=== PATIENT | male | born 1930 | race Caucasian/White ===

== ENCOUNTER → 2016-09-02 | Outpatient (CLI) | payer OTHER ==
[~2016-09-02] MED LIST: ACETAMINOPHEN650 M1 PO; AL-MAG HYDROX-S30 M1 PO; BACTRIM DS TABL1 TA1 PO; CARAFATE1 GM PO; CIPRO PO; CLOPIDOGREL75 MG PO; EYE VITAMIN-MI1 EACH; FLOMAX0.4 M1 PO; HYTRIN PO; HYTRIN10 M1 PO; HYTRIN10 MG PO; IMDUR PO; INVANZ1 G/VIA1 IV; ISORDIL10 MG PO; KEFLEX500 M1 PO; LIPITOR PO; LORTAB 5-325 M1 EACH PO; MULTI-VITAMIN1 TAB PO; PERCOCET 5-3251 TAB PO; PHENERGAN25 M1 PO; PLAVIX PO; PRAVASTATIN SOD40 MG PO; PRESERVISION/LUTEIN PO; PRESERVISION1 EA PO; PRILOSEC PO; RANITIDINE HCL150 M1 PO; RISA-BID CAPLE1 EAC1 PO; ZANTAC150 MG PO
--- NOTE | ~2016-09-02 | US5 ---
[facility] A Service of [facility] RADIOLOGY TEXT RESULTS PATIENT: ANGEL LUIS CURRY LOCATION: [facility] : 31 UNIT #: [id number] AGE: [address]: Angel Luis Banda MD SEX: M ORDER DR: [id number] [facility] [address] [place], [place] [address] [id number] O MR#: [id number] Acc #: [id number] NAME: ANGEL LUIS CURRY : 1930 SEX: M STUDY DATE/TIME: 09/02/2016 10:17 UNIT: US ROOM: STUDY DESCRIPTION: US Abdominal Complete Attending Physician: Angel Luis Banda Jr., M.D. Referring Physician: Angel Luis Banda Jr., M.D. Ordering Physician: Angel Luis Banda Jr., M.D. Primary Care Physician: Angel Luis Banda Jr., M.D. MEDICAL IMAGING REPORT This report is preliminary unless electronic signature is present EXAM Abdominal ultrasound INDICATION Elevated liver enzyme levels. PROCEDURE Huff-scale and Doppler imaging of the abdomen. COMPARISON None. FINDINGS Submitted images abdominal aorta and inferior vena cava unremarkable. Liver measures 14.8 cm. No liver mass on submitted images. Common duct measures 5 mm. Right kidney measures 11.3 cm. Mild prominence of the right renal pelvis. Left kidney measures 9.4 cm. There is mild left hydronephrosis. Spleen measures 8.6 cm. IMPRESSION 1. Mild left hydronephrosis with mild prominence of the right renal pelvis. No definite obstructing process seen on this study. That would be better evaluated with CT. 2. Gallbladder not seen, presumed surgically absent. 3. No acute finding seen elsewhere in the abdomen. Dictated by... Chester Oseguera M.D. THIS IS AN ELECTRONICALLY VERIFIED REPORT Chester Oseguera M.D. at 09/02/2016 10:23 PM [facility] A Service of [facility] RADIOLOGY TEXT RESULTS PATIENT: ANGEL LUIS CURRY LOCATION: [facility] : 31 UNIT #: [id number] AGE: [address]: Angel Luis Banda MD SEX: M ORDER DR: MODE/aniket TD: 09/02/2016 21:16 JOB #: [id number] MEDICAL IMAGING REPORT Page 1 of 1 COPY
== END | disposition home or self-care (01) ==
LOC: CGUS 09:51
DX: R74.8 Abnormal levels of other serum enzymes (principal); N13.30 Unspecified hydronephrosis
CPT/HCPCS: 76700

== ENCOUNTER → 2016-11-15 | Outpatient (CLI) | payer OTHER ==
--- NOTE | ~2016-11-15 | CT4 ---
[facility] A Service of [facility] RADIOLOGY TEXT RESULTS PATIENT: ANGEL LUIS CURRY LOCATION: [facility] : 31 UNIT #: [id number] AGE: [address]: Angel Luis Banda MD SEX: M ORDER DR: [id number] [facility] [address] [place], [place] [address] [id number] O MR#: [id number] Acc #: [id number] NAME: ANGEL LUIS CURRY : 1930 SEX: M STUDY DATE/TIME: 11/15/2016 8:20 UNIT: [facility] ROOM: STUDY DESCRIPTION: CT Abd and Pelv Wo Cont Attending Physician: Angel Luis Banda Jr., M.D. Referring Physician: Angel Luis Banda Jr., M.D. Ordering Physician: Angel Luis Banda Jr., M.D. Primary Care Physician: Angel Luis Banda Jr., M.D. MEDICAL IMAGING REPORT This report is preliminary unless electronic signature is present EXAM CT abdomen and pelvis without contrast 11/15/2016 HISTORY Physician's order states hydronephrosis. 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 History of kidney stones. History of prostate cancer, 11/27/[address] abdomen and pelvis without contrast 08/15/2015. Complete abdominal ultrasound 09/02/2016. TECHNIQUE 3 mm noncontrast axial images through the abdomen. Sagittal and coronal reformatted images were obtained. Enteric contrast was not administered. This CT exam was performed with one or more of the following radiation dose reduction techniques: automatic exposure control, adjustment of mA and/or kV according to patient size, and iterative reconstruction. FINDINGS The liver has a normal noncontrast appearance. Spleen, pancreas, adrenals are normal. There is moderately advanced calcific atherosclerosis within the abdominal aorta, with mild infrarenal abdominal aortic ectasia up to 2.8 cm, but without yoni aneurysm. There is moderate left hydronephrosis and hydroureter to the level of the urinary bladder without obstructing etiology identified. There is mild right pelviectasis without yoni hydronephrosis and no right hydroureter is seen. No urinary tract stone is evident. [facility] A Service of [facility] RADIOLOGY TEXT RESULTS PATIENT: ANGEL LUIS CURRY LOCATION: [facility] : 31 UNIT #: [id number] AGE: [address]: Angel Luis Banda MD SEX: M ORDER DR: There is mild urinary bladder wall thickening, similar to the 08/15/2015 exam. Trace pericardial fluid is present. Mild coronary artery calcifications are noted. Surgical clips at the esophagogastric junction. Lung bases are free of acute airspace disease. Gallbladder is presumably surgically absent. Diverticular changes are present within the colon, greatest in the sigmoid segment, without evidence of acute diverticulitis. PELVIS: There are small bilateral inguinal hernias, the left containing only fat, the right containing fat and fluid. Prostate gland is presumably surgically absent. Rectum is within normal limits. No pelvic adenopathy is identified. Facet arthropathy is present in the lower lumbar spine. No acute osseous abnormalities are identified. IMPRESSION 1. Moderate left hydronephrosis and hydroureter is similar in appearance to the 08/15/2015 examination. No obstructing ureteral stone is seen. 2. Mild right renal pelviectasis, with findings in the right kidney significantly improved compared to 08/15/2015 CT. No right hydroureter. No ureteral stone. 3. Mild urinary bladder wall thickening, similar to the 2016 examination. Findings could represent sequelae of chronic outlet obstruction. 4. Query prostatectomy. 5. Small bilateral inguinal hernias. 6. Surgical changes of the esophagogastric junction. 7. Presumed cholecystectomy. 8. Uncomplicated colonic diverticulosis. 9. Normal appendix. 10. Trace pericardial fluid. Coronary artery calcifications. 11. Not mentioned above, lobulated cortex of each kidney with areas of multifocal scarring. Dictated by... Valerie Alves M.D. THIS IS AN ELECTRONICALLY VERIFIED REPORT Valerie Alves M.D. at 11/18/2016 8:52 AM ELIS/louis TD: 11/15/2016 18:19 JOB #: [id number] [facility] A Service of [facility] RADIOLOGY TEXT RESULTS PATIENT: ANGEL LUIS CURRY [id number] [birth year] UNIT #: [id number] AGE: [address]: Angel Luis Banda MD SEX: M ORDER DR: MEDICAL IMAGING REPORT Page 1 of 1 COPY
== END | disposition home or self-care (01) ==
LOC: CCAT 07:49
DX: N13.30 Unspecified hydronephrosis (principal); N13.4 Hydroureter; K40.90 Unilateral inguinal hernia, without obstruction or gangrene, not specified as recurrent; K57.30 Diverticulosis of large intestine without perforation or abscess without bleeding; I25.10 Atherosclerotic heart disease of native coronary artery without angina pectoris; N32.89 Other specified disorders of bladder; Z98.890 Other specified postprocedural states
CPT/HCPCS: 74176

== ENCOUNTER → 2016-11-23 | Outpatient (CLI) | payer OTHER ==
--- NOTE | ~2016-11-23 | NM8 ---
[facility] A Service of [facility] RADIOLOGY TEXT RESULTS PATIENT: ANGEL LUIS CURRY LOCATION: [facility] : 32 UNIT #: [id number] AGE: [address]: Anderson Tipton MD SEX: M ORDER DR: [id number] [facility] [address] [place], [place] [address] [id number] O MR#: [id number] Acc #: [id number] NAME: ANGEL LUIS CURRY : 1930 SEX: M STUDY DATE/TIME: 11/23/2016 11:35 UNIT: [facility] ROOM: STUDY DESCRIPTION: FL Bone or Joint Whole Body Attending Physician: Anderson Tipton M.D. Referring Physician: Anderson Tipton M.D. Ordering Physician: Anderson Tipton M.D. Primary Care Physician: Angel Luis Banda Jr., M.D. MEDICAL IMAGING REPORT This report is preliminary unless electronic signature is present EXAM Whole body bone scan, 11/23/16 HISTORY Order states prostate cancer. Plain films with hot spots. History sheet states kidney problems. ?PSA. Past history of prostate cancer diagnosed in 1994. 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 COMPARISON - CT abdomen and pelvis 11/15/16 FINDINGS The patient received 28.8 mCi Tc99m MDP intravenous and anterior and posterior whole body scans are supplemented by spot images of the thorax and calvaria. There is no scintigraphic evidence of osseous metastatic disease. Areas of mild increased uptake in the left AC joint, basal joints of the thumb, medial right knee, patellofemoral compartment left knee, right great toe, and proximal patellofemoral compartment of the right knee are most likely arthritic. Axial skeleton is within normal limits. Renal collecting system prominence is better characterized on the CT of 11/15/16. IMPRESSION 1. No scintigraphic evidence of metastatic disease. 2. Scattered probable arthritic uptake. 3. Abnormal bilateral renal collecting systems. See CT report of 11/15/16 of the abdomen and pelvis. [facility] A Service of [facility] RADIOLOGY TEXT RESULTS PATIENT: ANGEL LUIS CURRY LOCATION: [facility] : 32 UNIT #: [id number] AGE: [address]: Anderson Tipton MD SEX: M ORDER DR: Dictated by... Keya Mims M.D. THIS IS AN ELECTRONICALLY VERIFIED REPORT Keya Mims M.D. at 11/24/2016 11:08 AM LASHAY/alvaro TD: 11/23/2016 17:26 JOB #: [id number] MEDICAL IMAGING REPORT Page 1 of 1 COPY
== END | disposition home or self-care (01) ==
LOC: CNUC 08:00
DX: C61 Malignant neoplasm of prostate (principal); N28.9 Disorder of kidney and ureter, unspecified
CPT/HCPCS: 78306; A9503